=== PATIENT | female | born 1950 | race Caucasian/White ===

== ENCOUNTER 2016-12-12 13:15 | Emergency (ER) | payer OTHER ==
[~2016-12-12] VITALS: Ht 157.5 cm; Wt 66.7 kg
[~2016-12-12 13:15] MED LIST: ASPIR 8181 M1 PO; ASPIRIN E.C.81 M1 PO; ATORVASTATIN CA40 MG PO; ATORVASTATIN CA80 MG PO; BUDEPRION SR150 MG PO; BYSTOLIC10 MG PO; CELEXA40 MG PO; COREG25 MG PO; DOCUSATE SODIU100 MG PO; FLEXERIL10 MG PO; GABAPENTIN100 MG PO; HYDROCODON-ACE1 EAC7 PO; LEVOTHROID,SY0.05 MG PO; LEVOTHYROXINE50 MCG PO; LOVENOX40 MG/0.4 SC; Levothroid,Synthroid PO; METOPROLOL SUCC50 MG PO; MILK OF MAGNESI10 ML PO; NAPROXEN500 MG PO; OMEPRAZOLE20 MG PO; OXYCODONE HCL15 MG PO; PANTOPRAZOLE SO40 MG PO; PEPCID40 MG PO; PLAVIX75 MG PO; PRAVACHOL40 MG PO; PRILOSEC20 MG PO; PROZAC40 MG PO; Pepcid PO; SENNA-S TABLET1 EACH PO; TEMAZEPAM30 MG PO; TYLENOL650 MG PR; ULTRAM50 MG PO; XANAX1 MG PO; ZESTRIL,PRINIVI40 M1 PO; ZOCOR20 MG PO; ZOCOR80 MG PO
[2016-12-12] MEDS ORDERED: FLEXERIL10 MG PO (14:53)
[2016-12-12 15:25] VITALS: BP 177/105
== END 2016-12-12 15:38 | disposition home or self-care (01) ==
LOC: EME 13:15
DX: M25.511 Pain in right shoulder (principal); S16.1XXA Strain of muscle, fascia and tendon at neck level, initial encounter; W00.0XXA Fall on same level due to ice and snow, initial encounter; J45.909 Unspecified asthma, uncomplicated; I10 Essential (primary) hypertension; E03.9 Hypothyroidism, unspecified; I25.2 Old myocardial infarction; Z95.1 Presence of aortocoronary bypass graft; Z98.61 Coronary angioplasty status; Z87.891 Personal history of nicotine dependence
CPT/HCPCS: 73030; 99281; 99284